=== PATIENT | female | born 1945 | race Caucasian/White ===

== ENCOUNTER 2021-08-30 09:02 | Outpatient (CLI) | payer MEDICARE | END 2021-08-30 09:03 | disposition home or self-care (01) | LOC: CSHCT 09:02 | PROVIDERS: ATTEND Internal Medicine Hematology & Oncology | DX: C22.1 Intrahepatic bile duct carcinoma (principal) | CPT/HCPCS: 71260; 74177; 82565 ==

== ENCOUNTER 2022-05-07 09:34 | Outpatient (CLI) | payer MEDICARE ==
[2022-05-07] MEDS ORDERED: Iopamidol 300 61% 100 ML VIAL FS ONE (12:16)
== END 2022-05-07 09:35 | disposition home or self-care (01) ==
LOC: CSHCT 09:34
PROVIDERS: ATTEND Internal Medicine Hematology & Oncology
DX: C22.1 Intrahepatic bile duct carcinoma (principal); Z98.890 Other specified postprocedural states; Z90.49 Acquired absence of other specified parts of digestive tract; K86.89 Other specified diseases of pancreas
CPT/HCPCS: 71260; 74177; 82565

== ENCOUNTER 2024-04-22 08:56 | Outpatient (CLI) | payer MEDICARE | END 2024-04-22 08:57 | disposition home or self-care (01) | LOC: CSHCT 08:56 | PROVIDERS: ATTEND Internal Medicine Hematology & Oncology | DX: C22.1 Intrahepatic bile duct carcinoma (principal) | CPT/HCPCS: 71260; 74177; 82565 ==